=== PATIENT | female | born 1995 ===

== ENCOUNTER → 2020-05-21 | Outpatient (CLI) | payer OTHER | END | disposition home or self-care (01) | LOC: PRENATAL 13:00 | PROVIDERS: ATTEND Obstetrics & Gynecology Maternal & Fetal Medicine | DX: O35.0XX1 Maternal care for (suspected) central nervous system malformation in fetus, fetus 1 (principal); O35.3XX1 Maternal care for (suspected) damage to fetus from viral disease in mother, fetus 1; O98.512 Other viral diseases complicating pregnancy, second trimester; Z36.89 Encounter for other specified antenatal screening; Z3A.23 23 weeks gestation of pregnancy ==

== ENCOUNTER 2020-06-30 17:48 | Outpatient (CLI) | payer OTHER | END 2020-06-30 18:00 | disposition home or self-care (01) | LOC: LAB 17:48 | PROVIDERS: ATTEND General Practice | DX: Z11.3 Encounter for screening for infections with a predominantly sexual mode of transmission (principal) ==

== ENCOUNTER → 2020-08-16 | Outpatient (CLI) | payer OTHER ==
[~2020-08-16] MED LIST: PRENATAL TABLE1 EAC1 PO; Tylenol #3 PO
== END | disposition home or self-care (01) ==
LOC: PRENATAL 10:00
PROVIDERS: ATTEND Obstetrics & Gynecology Maternal & Fetal Medicine
DX: O26.843 Uterine size-date discrepancy, third trimester (principal); O36.8131 Decreased fetal movements, third trimester, fetus 1; Z36.89 Encounter for other specified antenatal screening; Z3A.35 35 weeks gestation of pregnancy

== ENCOUNTER → 2020-08-16 | Outpatient (CLI) | payer OTHER | END | disposition home or self-care (01) | LOC: NST 15:02 | PROVIDERS: ATTEND Obstetrics & Gynecology | DX: Z34.83 Encounter for supervision of other normal pregnancy, third trimester (principal) ==

== ENCOUNTER 2020-09-02 06:57 | Inpatient (IN) | payer OTHER ==
[~2020-09-02] VITALS: Ht 160 cm; Wt 64.9 kg
[2020-09-02] MEDS ORDERED: PRENATAL TABLE1 EAC1 PO (08:17)
[2020-09-04] MEDS ORDERED: Tylenol #3 PO (08:46)
== END 2020-09-04 13:49 | disposition home or self-care (01) | DRG 807 ==
LOC: LDR 06:57 → OB/GYN 06:57
PROVIDERS: ADMIT Obstetrics & Gynecology; ATTEND Obstetrics & Gynecology
PROC: 10E0XZZ Delivery of Products of Conception, External Approach (ICD-10-PCS; principal; 2020-09-02)
PROC: 0KQM0ZZ Repair Perineum Muscle, Open Approach (ICD-10-PCS; 2020-09-02)
PROC: 3E033VJ Introduction of Other Hormone into Peripheral Vein, Percutaneous Approach (ICD-10-PCS; 2020-09-02)
PROC: 10907ZC Drainage of Amniotic Fluid, Therapeutic from Products of Conception, Via Natural or Artificial Opening (ICD-10-PCS; 2020-09-02)
PROC: 4A1HXFZ Monitoring of Products of Conception, Cardiac Rhythm, External Approach (ICD-10-PCS; 2020-09-02)
DX: O70.1 Second degree perineal laceration during delivery (principal); Z37.0 Single live birth; O36.8130 Decreased fetal movements, third trimester, not applicable or unspecified; Z3A.37 37 weeks gestation of pregnancy; Z20.822 Contact with and (suspected) exposure to COVID-19

== ENCOUNTER 2021-12-22 07:58 | Outpatient (CLI) | payer OTHER | END 2021-12-22 09:05 | disposition home or self-care (01) | LOC: PRENATAL 07:58 | PROVIDERS: ATTEND Obstetrics & Gynecology Maternal & Fetal Medicine | DX: O35.0XX0 Maternal care for (suspected) central nervous system malformation in fetus, not applicable or unspecified (principal); O35.3XX0 Maternal care for (suspected) damage to fetus from viral disease in mother, not applicable or unspecified; Z3A.20 20 weeks gestation of pregnancy ==

== ENCOUNTER 2022-02-12 10:50 | Emergency (ER) | payer OTHER ==
[~2022-02-12] VITALS: Ht 160 cm; Wt 61.2 kg
== END 2022-02-12 14:19 | disposition home or self-care (01) ==
LOC: ER 10:50
DX: K60.2 Anal fissure, unspecified (principal); K62.5 Hemorrhage of anus and rectum; Z20.828 Contact with and (suspected) exposure to other viral communicable diseases

== ENCOUNTER 2022-03-17 11:42 | Outpatient (CLI) | payer OTHER | END 2022-03-17 13:15 | disposition home or self-care (01) | LOC: PRENATAL 11:42 | PROVIDERS: ATTEND Obstetrics & Gynecology Maternal & Fetal Medicine | DX: O26.849 Uterine size-date discrepancy, unspecified trimester (principal); O36.8199 Decreased fetal movements, unspecified trimester, other fetus; Z3A.32 32 weeks gestation of pregnancy ==

== ENCOUNTER 2022-04-15 03:25 | Inpatient (IN) | payer OTHER ==
[~2022-04-15] VITALS: Ht 160 cm; Wt 65.8 kg
[2022-04-15] MEDS ORDERED: IRON325 MG PO (03:37)
== END 2022-04-18 14:32 | disposition home or self-care (01) | DRG 805 ==
LOC: OBS/DEL 03:25 → LDR 11:49 → OB/GYN 11:49
PROVIDERS: ADMIT Obstetrics & Gynecology; ATTEND Obstetrics & Gynecology
PROC: 4A1HXCZ Monitoring of Products of Conception, Cardiac Rate, External Approach (ICD-10-PCS; 2022-04-15)
PROC: 10E0XZZ Delivery of Products of Conception, External Approach (ICD-10-PCS; principal; 2022-04-16)
PROC: 0KQM0ZZ Repair Perineum Muscle, Open Approach (ICD-10-PCS; 2022-04-16)
PROC: 0UQG7ZZ Repair Vagina, Via Natural or Artificial Opening (ICD-10-PCS; 2022-04-16)
DX: O70.1 Second degree perineal laceration during delivery (principal); O60.14X0 Preterm labor third trimester with preterm delivery third trimester, not applicable or unspecified; Z37.0 Single live birth; Z3A.36 36 weeks gestation of pregnancy; Z20.822 Contact with and (suspected) exposure to COVID-19